=== PATIENT | female | born 1955 | race Two or more races ===

== ENCOUNTER 2017-07-13 09:36 | Outpatient (CLI) | payer OTHER ==
[~2017-07-13] VITALS: Ht 152.4 cm; Wt 60.8 kg
== END 2017-07-13 10:00 | disposition home or self-care (01) ==
LOC: OFIC 805 09:36
DX: J32.8 Other chronic sinusitis (principal); H90.3 Sensorineural hearing loss, bilateral; R09.81 Nasal congestion

== ENCOUNTER 2017-08-10 07:56 | Outpatient (CLI) | payer OTHER ==
[~2017-08-10] VITALS: Ht 152.4 cm; Wt 60.8 kg
== END 2017-08-10 08:15 | disposition home or self-care (01) ==
LOC: OFIC 805 07:56
DX: R09.81 Nasal congestion (principal); J32.8 Other chronic sinusitis

== ENCOUNTER 2019-06-14 12:18 | Outpatient (CLI) | payer OTHER ==
[~2019-06-14] VITALS: Ht 152.4 cm; Wt 60.8 kg
== END 2019-06-14 12:56 | disposition home or self-care (01) ==
LOC: OFIC 805 12:18
DX: J32.8 Other chronic sinusitis (principal); K08.89 Other specified disorders of teeth and supporting structures; J30.89 Other allergic rhinitis

== ENCOUNTER 2019-09-21 08:22 | Outpatient (CLI) | payer OTHER ==
[2019-09-21] MEDS ORDERED: SINGULAIR 10MG10 MG PO (12:45)
[2019-09-21] MEDS ORDERED: AZELASTIN-FLUTI23 GM NASAL (12:45)
== END 2019-09-21 13:06 | disposition home or self-care (01) ==
LOC: OFIC 805 08:22
PROVIDERS: ATTEND Otolaryngology
DX: J30.89 Other allergic rhinitis (principal); R09.81 Nasal congestion; J32.8 Other chronic sinusitis; G44.89 Other headache syndrome